=== PATIENT | female | born 2000 | race Two or more races ===

== ENCOUNTER 2022-07-09 15:16 | Emergency (ER) | payer OTHER ==
[~2022-07-09] VITALS: Ht 170.2 cm; Wt 111.5 kg
[2022-07-09] MEDS ORDERED: IBUP800T27 PO (15:53)
[2022-07-09 16:03] VITALS: BP 115/62
== END 2022-07-09 16:04 | disposition home or self-care (01) ==
LOC: ER 15:16
DX: S00.03XA Contusion of scalp, initial encounter (principal); V43.52XA Car driver injured in collision with other type car in traffic accident, initial encounter; Y93.89 Activity, other specified; Y92.410 Unspecified street and highway as the place of occurrence of the external cause; Y99.8 Other external cause status